=== PATIENT | female | born 1980 | race American Indian/Alaskan Native ===

== ENCOUNTER 2016-10-15 08:21 | Emergency (ER) | payer BC, OTHER ==
[2016-10-15 08:58] LABS: Basophils % (Auto) 0.6 % (0.0-1.8); Eosinophils % (Auto) 3.7 % (0.0-4.3); Hematocrit 37.5 % (30.3-42.9); Hemoglobin 12.3 gm/dl (10.1-14.3); Mean Corpuscular HGB Conc 33 % (30-34); Mean Corpuscular Hemoglobin 27 pg (28-32); Mean Corpuscular Volume 81 fl (79-97); Platelet Count 303 K/mm3 (140-440); Red Blood Count 4.62 M/mm3 (3.65-5.03); Red Cell Distribution Width 14.3 % (13.2-15.2); White Blood Count 6.8 K/mm3 (4.5-11.0)
[2016-10-15 09:10] LABS: Bilirubin,Urine NEG (Negative); Blood,Urine NEG (Negative); Ketones,Urine NEG (Negative); Leukocyte Esterase,Urine MOD (Negative); Mucus,Urine FEW /HPF; Nitrite,Urine NEG (Negative); Protein,Urine <15 mg/dL mg/dL (Negative); Urobilinogen,Urine < 2.0 mg/dL (<2.0)
[2016-10-15 09:14] LABS: Albumin 3.5 g/dL (3.9-5); Albumin/Globulin Ratio 0.8 %; Alkaline Phosphatase 48 units/L (35-129); Blood Urea Nitrogen 10 mg/dL (7-17); Calcium 8.7 mg/dL (8.4-10.2); Carbon Dioxide 23 mmol/L (22-30); Chloride 99.8 mmol/L (98-107); Glucose 117 mg/dL (65-100); Lipase 9 units/L (13-60); Sodium 137 mmol/L (137-145); Total Protein 7.7 g/dL (6.3-8.2)
[2016-10-15 10:05] LABS: Alanine Aminotransferase 13 units/L (7-56); Anion Gap 19 mmol/L; Potassium 4.7 mmol/L (3.6-5.0)
--- NOTE | 2016-10-15 11:23 | Emergency Department Report ---
HPI - General Chief Complaint: Abdominal Pain Time Seen by Provider: 10/15/16 11:18 - HPI HPI: This is a 36-year-old -[place] female presents to the emergency department with a complaint of lower abdominal cramping and some nausea and vomiting that has been going on since last night. She did not take anything for symptoms prior to presentation. She denies any past medical history. She denies any past surgical history. No recent travel or sick contacts at home. She denies any vaginal bleeding, vaginal discharge, dysuria, fever. 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 ED Past Medical Hx - Past Medical History Previous Medical History?: Yes Hx Hypertension: No Hx CVA: No Hx Heart Attack/AMI: No Hx Congestive Heart Failure: No Hx Diabetes: No Hx Deep Vein Thrombosis: No Hx Pulmonary Embolism: No Hx GERD: No Hx Liver Disease: No Hx Renal Disease: No Hx Sickle Cell Disease: No Hx Arthritis: No Hx Headaches / Migraines: No Hx Seizures: No Hx Kidney Stones: No Hx Psychiatric Treatment: No Hx Asthma: No Hx COPD: No Hx Tuberculosis: No Hx Dementia: No Hx HIV: No Additional medical history: fibroids, Right abd/flank pain - Surgical History Past Surgical History?: Yes Hx Coronary Stent: No Hx Open Heart Surgery: No Hx Pacemaker: No Hx Internal Defibrillator: No Hx Cholecystectomy: No Hx Appendectomy: No Hx Breast Surgery: No Additional Surgical History: D&C, Uterine fibroids removed - Social History Smoking Status: Never Smoker Substance Use Type: Non Opiate Pain, Other - Medications Home Medications: Home Medications Medication Instructions Recorded Confirmed Last Taken Type Vit-Fe Fumar-FA [ 1 tab PO QDAY #30 tablet 10/15/16 Unknown Rx Vitamin] ED Review of Systems ROS: Stated complaint: VOMITTING/ABD PAIN Other details as noted in HPI Comment: All other systems reviewed and negative Constitutional: denies: chills, fever Eyes: denies: eye pain, eye discharge, vision change ENT: denies: ear pain, throat pain Respiratory: denies: cough, shortness of breath, wheezing Cardiovascular: denies: chest pain, palpitations Gastrointestinal: abdominal pain, nausea, vomiting Genitourinary: denies: urgency, dysuria, discharge Musculoskeletal: denies: back pain, joint swelling, arthralgia Skin: denies: rash, lesions Neurological: denies: headache, weakness, paresthesias Physical Exam - Physical Exam Vital Signs: Vital Signs 10/15/16 08:24 Temperature 98.5 F Pulse Rate 70 Respiratory 18 Rate Blood Pressure 180/93 O2 Sat by Pulse 100 Oximetry Physical Exam: GENERAL: The patient is well-developed well-nourished. HEENT: Normocephalic. Atraumatic. Extraocular motions are intact. Patient has moist mucous membranes. Pupils equal reactive to light bilaterally. NECK: Supple. Trachea is midline. CHEST/LUNGS: Clear to auscultation. There is no respiratory distress noted. HEART/CARDIOVASCULAR: Regular. There is no tachycardia. There is no gallop rub or murmur. ABDOMEN: Abdomen is soft, nontender. Patient has normal bowel sounds. There is no abdominal distention. Morbidly obese habitus. SKIN: Skin is warm and dry. NEURO: The patient is awake, alert, and oriented. The patient is cooperative. The patient has no focal neurologic deficits. The patient has normal speech. MUSCULOSKELETAL: There is no tenderness or deformity. There is no limitation range of motion. There is no evidence of acute injury. ED Course Vital Signs 10/15/16 08:24 Temperature 98.5 F Pulse Rate 70 Respiratory 18 Rate Blood Pressure 180/93 O2 Sat by Pulse 100 Oximetry ED Medical Decision Making - Lab Data Result diagrams: 10/15/16 08:43 10/15/16 08:43 - Radiology Data Radiology results: report reviewed Transvaginal/ ultrasound shows a live intrauterine at about 8 weeks and 3 days. - Medical Decision Making 36-year-old female presents the emergency department with complaint of some abdominal cramping with nausea and vomiting last night. Patient had no idea that she was but was found to have a positive urine test here. The rest the labs are unremarkable do not show etiology of her symptoms. No urinary tract infection. Sent for a transvaginal/ ultrasound which came back showing live intrauterine at 8 weeks and 3 days. Patient started on vitamins and given multiple referrals for CORE INSPECTOR. She did have some elevated blood pressure but she does not appear to have preeclampsia. There is no sign of help syndrome. There is no thrombocytopenia, proteinuria , headache or elevation in her LFTs. For this reason she was not started on any medications other than the vitamins and was given multiple referrals for CORE INSPECTOR. - Differential Diagnosis , food poisoning, UTI, viral syndrome Critical Care Time: No Critical care attestation.: If time is entered above; I have spent that time in minutes in the direct care of this critically ill patient, excluding procedure time. ED Disposition Clinical Impression: Qualifiers: Weeks of gestation: 8 weeks Qualified Code(s): Z3A.08 - 8 weeks gestation of Nausea & vomiting Qualifiers: Vomiting type: unspecified Vomiting Intractability: non-intractable Qualified Code(s): R11.2 - Nausea with vomiting, unspecified Hypertension Qualifiers: Hypertension type: essential hypertension Qualified Code(s): I10 - Essential ( primary) hypertension Disposition: DC- TO HOME OR SELFCARE Is pt being admited?: No Condition: Stable Instructions: (ED), Hypertension (ED) Additional Instructions: Please follow-up with an CORE INSPECTOR in the next few days regarding her and your elevated blood pressure during . Try to stay away from foods that are high in salt and caffeinated products. Keep a blood pressure log. Return to the emergency department with any worsening of your symptoms or any acute distress. Prescriptions: Vit-Fe Fumar-FA [ Vitamin] 1 tab PO QDAY #30 tablet Referrals: [facility] [Provider Group] - 3-5 Days [facility] [Provider Group] - 3-5 Days [facility] [Provider Group] - 3-5 Days Forms: Work/School Release Form(ED) Time of Disposition: 12:48
[2016-10-15 12:14] VITALS: BP 153/89
--- NOTE | 2016-10-15 12:27 | Ultrasound Report ---
Transabdominal and transvaginal OB ultrasound. History: Pelvic pain. Findings: A single intrauterine is identified. The crown-rump length measures 1.9 cm which corresponds to a gestational age of 8 weeks and 3 days. The heart rate is 168 beats per minute. There is no evidence of subchorionic hemorrhage. The left ovary is normal. There is a 2.4 cm in diameter complex lesion in the right ovary. EDC is May 24, 2017. Impression: Viable IUP at 8 weeks 3 days gestation.
== END 2016-10-15 13:05 | disposition home or self-care (01) ==
LOC: ED 08:21
DX: O21.9 Vomiting of pregnancy, unspecified (principal); O26.891 Other specified pregnancy related conditions, first trimester; R11.0 Nausea; Z3A.08 8 weeks gestation of pregnancy; I10 Essential (primary) hypertension
CPT/HCPCS: 36415; 76801; 76817; 80053; 81001; 81025; 83690; 84702; 85025

== ENCOUNTER 2016-11-11 06:17 | Emergency (ER) | payer BC ==
[2016-11-11 07:00] VITALS: BP 185/95
[2016-11-11 07:28] LABS: Basophils % (Auto) 0.9 % (0.0-1.8); Eosinophils % (Auto) 3.2 % (0.0-4.3); Hemoglobin 12.3 gm/dl (10.1-14.3); Mean Corpuscular HGB Conc 33 % (30-34); Mean Corpuscular Hemoglobin 27 pg (28-32); Mean Corpuscular Volume 80 fl (79-97); Platelet Count 257 K/mm3 (140-440); Red Blood Count 4.61 M/mm3 (3.65-5.03); Red Cell Distribution Width 14.3 % (13.2-15.2); White Blood Count 6.8 K/mm3 (4.5-11.0)
[2016-11-11 07:48] LABS: Alanine Aminotransferase 13 units/L (7-56); Albumin 3.5 g/dL (3.9-5); Albumin/Globulin Ratio 0.9 %; Alkaline Phosphatase 46 units/L (35-129); Anion Gap 17 mmol/L; Blood Urea Nitrogen 6 mg/dL (7-17); Calcium 8.8 mg/dL (8.4-10.2); Carbon Dioxide 23 mmol/L (22-30); Glucose 108 mg/dL (65-100); Lipase 9 units/L (13-60); Potassium 4.1 mmol/L (3.6-5.0); Sodium 137 mmol/L (137-145); Total Protein 7.4 g/dL (6.3-8.2)
[2016-11-11 08:09] LABS: Bacteria,Urine 1+ /HPF (Negative); Bilirubin,Urine NEG (Negative); Blood,Urine NEG (Negative); Ketones,Urine NEG (Negative); Leukocyte Esterase,Urine TR (Negative); Mucus,Urine FEW /HPF; Nitrite,Urine NEG (Negative); Protein,Urine <15 mg/dL mg/dL (Negative); Urobilinogen,Urine < 2.0 mg/dL (<2.0)
== END 2016-11-11 07:11 | disposition left against medical advice (07) ==
LOC: ED 06:17
DX: O20.9 Hemorrhage in early pregnancy, unspecified (principal); Z3A.12 12 weeks gestation of pregnancy; Z53.21 Procedure and treatment not carried out due to patient leaving prior to being seen by health care provider
CPT/HCPCS: 36415; 80053; 81001; 83690; 84702; 85025; 86850; 86900; 86901

== ENCOUNTER 2017-04-12 10:20 | Outpatient (CLI) | payer BC, MEDICAID ==
[2017-04-12] MEDS ORDERED: LACTATED RINGERS 500 ML IV ONE (10:39)
[2017-04-12 11:25] VITALS: BP 113/61
[2017-04-12 11:48] LABS: Bilirubin,Urine NEG (Negative); Blood,Urine NEG (Negative); Color,Urine Yellow (Yellow); Mucus,Urine FEW /HPF; Nitrite,Urine NEG (Negative); Protein,Urine <15 mg/dL mg/dL (Negative)
[2017-04-12] MEDS ORDERED: LACTATED RINGERS 1,000 ML IV ONE (12:41)
--- NOTE | 2017-04-12 14:44 | Ultrasound Report ---
FINAL REPORT EXAM: US OB BPP WO NON-STRESS HISTORY: WELL BEING-BPP TECHNIQUE: Biophysical profile Limited OB ultrasound. PRIORS: None currently available. FINDINGS: Single fetus is identified. Presentation: Breech Placenta: Anterior. heart rate: 135 BPM LEONEL: 11.9 cm. Within normal limits. Breathin Gross Body Movements: 2 Tone: 2 Qualitative AFV: 2 IMPRESSION: Biophysical profile score 8/8.
--- NOTE | 2017-04-12 14:44 | Ultrasound Report ---
FINAL REPORT EXAM: US OB LIMITED HISTORY: NEED LEONEL TECHNIQUE: Biophysical profile Limited OB ultrasound. PRIORS: None currently available. FINDINGS: Single fetus is identified. Presentation: Breech Placenta: Anterior. heart rate: 135 BPM LEONEL: 11.9 cm. Within normal limits. Breathin Gross Body Movements: 2 Tone: 2 Qualitative AFV: 2 IMPRESSION: Biophysical profile score 8/8.
[2017-04-12] MEDS ORDERED: VISTARIL PO ONE (14:48)
== END 2017-04-12 15:07 | disposition home or self-care (01) ==
LOC: TRG 10:20
PROVIDERS: ATTEND Obstetrics & Gynecology
DX: O09.523 Supervision of elderly multigravida, third trimester (principal); O32.1XX0 Maternal care for breech presentation, not applicable or unspecified; Z3A.34 34 weeks gestation of pregnancy
CPT/HCPCS: 76815; 76819; 81001; J7120; Q0177

== ENCOUNTER 2017-05-01 04:55 | Outpatient (CLI) | payer BC, MEDICAID ==
[2017-05-01 05:16] VITALS: BP 132/83
== END 2017-05-01 07:10 | disposition home or self-care (01) ==
LOC: TRG 04:55
PROVIDERS: ATTEND Obstetrics & Gynecology
DX: O09.523 Supervision of elderly multigravida, third trimester (principal); O47.1 False labor at or after 37 completed weeks of gestation; Z3A.37 37 weeks gestation of pregnancy

== ENCOUNTER 2017-05-03 09:03 | Inpatient (IN) | payer BC, MEDICAID ==
[2017-05-03] MEDS ORDERED: LACTATED RINGERS 1,000 ML ONE (10:25)
[2017-05-03] MEDS ORDERED: ePHEDrine SULFATE IV PRN (10:33)
[2017-05-03] MEDS ORDERED: SUBLIMAZE IV PRN ×2 (10:33→10:47)
[2017-05-03] MEDS ORDERED: BRETHINE SUB-Q PRN (10:33)
[2017-05-03] MEDS ORDERED: POLYCILLIN/NS 2 GM/100 ML 2 GM/100 ML BAG IV ONE (10:33)
[2017-05-03] MEDS ORDERED: MINERAL OIL PO PRN (10:33)
[2017-05-03] MEDS ORDERED: XYLOCAINE 2% INFILTRATI ONE (10:33)
[2017-05-03] MEDS ORDERED: BRETHINE IVP PRN (10:33)
[2017-05-03] MEDS ORDERED: SUBLIMAZE ONE ×2 (10:49→11:47)
[2017-05-03] MEDS ORDERED: PITOCin/NS 20 UNIT/1000ML DRIP 20 UNITS/1,000 ML BAG IV SCH ×2 (11:00→13:00)
[2017-05-03] MEDS ORDERED: LACTATED RINGERS 1,000 ML IV SCH (11:00)
[2017-05-03] MEDS ORDERED: PITOCin/NS 30 UNIT/500ML 30 UNITS/500 ML BAG IV SCH (11:00)
[2017-05-03] MEDS ORDERED: BICITRA ONE (11:05)
[2017-05-03] MEDS ORDERED: REGLAN ONE (11:05)
[2017-05-03] MEDS ORDERED: PEPCID ONE (11:06)
[2017-05-03] MEDS ORDERED: ANCEF/STERILE WATER 2 GM/20 ML 2 GM/20 ML SYRINGE IV ONE (11:06)
[2017-05-03] MEDS ORDERED: ANCEF/STERILE WATER 2 GM/20 ML IV ONE (11:07)
[2017-05-03] MEDS ORDERED: NARCAN 2 MG/2 ML ONE (11:09)
[2017-05-03] MEDS ORDERED: DIPRIVAN 10 MG/ML IV ONE (11:15)
[2017-05-03] MEDS ORDERED: XYLOCAINE MPF 2% ONE (11:15)
[2017-05-03] MEDS ORDERED: QUELICIN ONE (11:15)
[2017-05-03] MEDS ORDERED: NACL 0.9% IR ONE (11:17)
[2017-05-03] MEDS ORDERED: WATER FOR IRRIG STERILE IR ONE (11:17)
--- NOTE | 2017-05-03 11:24 | History and Physical Report ---
History of Present Illness Date of examination: 05/03/17 Date of admission: 05/03/17 09:03 Chief complaint: Leaking fluid, contractions History of present illness: 37yo G 1 P 0 @ 37 weeks 3 days by US here with c/o leaking clear fluid since 08: 00 and having regular contractions. She reports +FMs but denies VB. Her course is complicated by chronic HTN, AMA and morbid obesity; co- managed with [facility]. She is on Labetalol 200mg PO BID. She has a h/o genital herpes and is on suppressive therapy. She denies any sores or recent outbreak. She is GBS neg. 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: other (uterine fibroids) Family/Genetic History: cancer (breast) Social history: - Obstetrical History Expected Date of Delivery: 05/24/17 Actual Gestation: 37 Week(s) 0 Day(s) : 1 Para: 0 Hx # Term Pregnancies: 0 Number of Pregnancies: 0 Spontaneous Abortions: 0 Induced : 0 Number of Living Children: 0 Medications and Allergies Allergies Allergy/AdvReac Type Severity Reaction Status Date / Time No Known Allergies Allergy Verified 04/12/17 10:28 Home Medications Medication Instructions Recorded Confirmed Last Taken Type Vit-Fe Fumar-FA [ 1 tab PO QDAY #30 tablet 10/15/16 Unknown Rx Vitamin] Ferrous Sulfate [Feosol 325 MG tab] 325 mg PO BID #60 tablet 05/03/17 Unknown Rx HYDROcodone/APAP 5-325 [[place] 1 each PO Q6HR PRN #30 tablet 05/03/17 Unknown Rx 5/325] Ibuprofen [Motrin] 800 mg PO Q8HR PRN #30 tablet 05/03/17 Unknown Rx Vit-Fe Fumar-FA [ 1 tab PO QDAY #30 tablet 05/03/17 Unknown Rx Vitamin] Active Meds: Active Medications Ephedrine Sulfate (Ephedrine Sulfate) 10 mg IV Q2M PRN PRN Reason: Hypotension Fentanyl (Sublimaze) 100 mcg IV Q2H PRN PRN Reason: SEVERE PAIN Ampicillin Sodium (Polycillin/Ns 2 Gm/100 Ml) 2 gm in 100 mls @ 100 mls/hr IV ONCE ONE PRN Reason: Protocol Stop: 05/03/17 11:32 Lactated Ringer's (Lactated Ringers) 1,000 mls @ 125 mls/hr IV DIRECT MALLORY Oxytocin/Sodium Chloride (Pitocin/Ns 20 Unit/1000ml Drip) 20 units in 1,000 mls @ 125 mls/hr IV DIRECT MALLORY Oxytocin/Sodium Chloride (Pitocin/Ns 30 Unit/500ml) 30 units in 500 mls @ 0 mls /hr IV TITR MALLORY; As Directed PRN Reason: Protocol Mineral Oil (Mineral Oil) 30 ml PO QHS PRN PRN Reason: Constipation Terbutaline Sulfate (Brethine) 0.25 mg SUB-Q ONCE PRN PRN Reason: Hyperstimulation/Hypertonicity Terbutaline Sulfate (Brethine) 0.25 mg IVP ONCE PRN PRN Reason: Hyperstimulation/Hypertonicity Review of Systems All systems: negative - Vital Signs Vital signs: Vital Signs Pulse Pulse Ox 97 H 99 05/03/17 09:47 05/03/17 09:47 Temp Pulse Resp BP Pulse Ox 97.3 F L 89 18 143/86 94 05/03/17 09:55 05/03/17 11:02 05/03/17 09:55 05/03/17 09:56 05/03/17 11:02 - Physical Exam Cardiovascular: Regular rate, Normal S1, Normal S2, No murmurs Lungs: Positive: Clear to auscultation, Normal air movement Abdomen: Positive: normal appearance, soft Genitourinary (Female): Positive: normal external genitalia, normal perenium Vulva: both: normal Vagina: Positive: normal moisture Uterus: Positive: normal size, normal contour Anus/Rectum: Positive: normal perianal skin Extremities: Positive: normal Deep Tendon Reflex Grade: Dull/Diminished +1 - Obstetrical FHR: category 3 FHR comments: baseline initially in the 50's then 90's with IV hydration, oxygen administration and position changes Uterine Contraction Monitor Mode: External Cervical Dilatation: 5 Cervical Effacement Percentage: 100 station: -2 Uterine Contraction Frequency (min): 3 Uterine Contraction Pattern: Regular Results Result Diagrams: 05/03/17 09:55 All other labs normal. Assessment and Plan - Patient Problems (1) SROM (spontaneous rupture of membranes) Current Visit: Yes Status: Acute Plan to address problem: Admit to L&D with routine labor orders IUPC/FSE insertion due to difficulties with external tracing (2) Active labor at term Current Visit: Yes Status: Acute (3) 37 weeks gestation of Current Visit: Yes Status: Acute (4) Chronic hypertension affecting Current Visit: Yes Status: Acute Plan to address problem: Hourly BP checks (5) Morbid obesity with BMI of 50.0-59.9, adult Current Visit: Yes Status: Acute (6) bradycardia during labor Current Visit: Yes Status: Acute Plan to address problem: Extended Bradycardia Dr. Toro notified. STAT C/S called
[2017-05-03] MEDS ORDERED: ASTRAMORPH PF 10MG/10ML ONE (11:31)
[2017-05-03] MEDS ORDERED: DILAUDID ONE (11:32)
[2017-05-03] MEDS ORDERED: VERSED ONE (11:34)
[2017-05-03] MEDS ORDERED: NEO SYNEPHRINE/NS Syringe(OR USE) IV ONE (11:45)
[2017-05-03] MEDS ORDERED: ZOFRAN ONE (11:46)
--- NOTE | 2017-05-03 12:09 | Anesthesia Consultation ---
Anesthesia Consult and Med Hx Date of service: 05/03/17 - Airway Anesthetic Teeth Evaluation: Good ROM Head & Neck: Adequate Mental/Hyoid Distance: Adequate Mallampati Class: Class II Intubation Access Assessment: Probably Good - Pulmonary Exam CTA: Yes - Cardiac Exam Cardiac Exam: RRR - Pre-Operative Health Status ASA Pre-Surgery Classification: ASA2 Proposed Anesthetic Plan: General - Pulmonary Hx Asthma: No COPD: No Hx Pneumonia: No - Cardiovascular System Hx Hypertension: Yes Hx Heart Attack/AMI: No Hx Pacemaker: No Hx Internal Defibrillator: No - Central Nervous System Hx Seizures: No Hx Psychiatric Problems: No - Endocrine Hx Renal Disease: No Hx End Stage Renal Disease: No Hx Liver Disease: No Hx Hypothyroidism: No Hx Hyperthyroidism: No - Hematic Hx Anemia: No Hx Sickle Cell Disease: No - Other Systems Hx Alcohol Use: No
--- NOTE | 2017-05-03 12:09 | Anesthesia Day of Surgery ---
Anesthesia Day of Surgery - Day of Surgery Patient Examined: Yes Patient H&P Reviewed: Yes Patient is NPO: Yes
--- NOTE | 2017-05-03 12:17 | Operative Report ---
Operative Report Operative Report: Date of procedure: 05/03/2017 Pre-operative diagnosis: 1. Intrauterine at 37-2/7 weeks in labor 2. Non-reassuring surveillance 3. AMA 4. Chronic hypertension 5. Morbid obesity Post-operative diagnosis: Same Procedure name(s): Stat primary low transverse section Surgeon: Johnny Toro MD Assembler Garment Form: None Anesthesia: Gen. endotracheal intubation by Dr. Jorge EBL: 800 mL Findings: A 2912 g female infant Apgars 8 at 1 minute 9 at 5 minutes. Clear amniotic fluid. Normal uterus. Normal tubes and ovaries bilaterally. Procedure: After the patient was prepped and draped in usual sterile fashion, and after general anesthesia was obtained, the skin knife was used to make a transverse skin incision. The incision was excised down to layer of the fascia , which was nicked in the midline and extended laterally using the Bovie cautery. The rectus muscles were dissected off the rectus fascia both superiorly and inferiorly. The rectus bellies in the midline, and the peritoneum was entered under direct visualization. The peritoneal incision was extended superiorly and inferiorly. A bladder flap was created and the bladder blade was then placed. The uterus was scored in a curvilinear linear fashion, entered in the midline revealing clear amniotic fluid. The 's head was delivered onto the surgical field, and the oropharynx and nasopharynx were bulb suctioned. The rest of the 's body was delivered, cord was doubly clamped and cut and the was handed to the waiting respiratory team. Cord gas and cord blood was then obtained. The placenta was manually removed from the uterus, and the uterus removed from its normal anatomical position. After gentle uterine lavage, the incision was inspected and found to be without extensions. It was then closed in 2 layers using 0 Vicryl suture in a running interlocking fashion, the second layer imbricating the first. After good hemostasis was achieved, copious amounts or irrigation was performed, and the gutters were suctioned free of blood and blood clots. Tisseel sealant was sprayed across the uterine incision. The uterus was then returned to its normal anatomical position, and after excellent hemostasis assured, the peritoneum was re-approximated using 3-0 Vicryl suture in a running interlocking fashion, and then the rectus muscles were re-approximated using 3- 0 Vicryl suture in a [id number] configuration. The fascia was then re- approximated using 0 Vicryl suture in running interlocking fashion. The subcutaneous layer was made hemostatic using Bovie cautery, the Tisseel sealant was sprayed across the fascial incision and the skin edges re-approximated using 4-0 Vicryl suture in a subcuticular fashion. Patient tolerated the procedure well was transported to recovery in stable condition.
[2017-05-03] MEDS ORDERED: BENADRYL IV PRN (12:30)
[2017-05-03] MEDS ORDERED: DILAUDID IV PRN (12:30)
[2017-05-03 12:38] LABS: Hematocrit 32.3 % (30.3-42.9); Hemoglobin 10.8 gm/dl (10.1-14.3); Mean Corpuscular HGB Conc 34 % (30-34); Mean Corpuscular Hemoglobin 27 pg (28-32); Mean Corpuscular Volume 81 fl (79-97); Platelet Count 371 K/mm3 (140-440); Red Blood Count 3.97 M/mm3 (3.65-5.03); Red Cell Distribution Width 13.6 % (13.2-15.2)
[2017-05-03] MEDS ORDERED: NARCAN 0.4 MG/1 ML IV PRN ×2 (13:00)
[2017-05-03] MEDS ORDERED: SODIUM CHLORIDE FLUSH SYRINGE 10 ML IV PRN (13:00)
[2017-05-03] MEDS ORDERED: LANSINOH TP PRN (13:00)
[2017-05-03] MEDS ORDERED: TYLENOL PO PRN (13:00)
[2017-05-03] MEDS ORDERED: ANCEF/NS 1 GM/50 ML 1 GM/50 ML BAG IV SCH (13:00)
[2017-05-03] MEDS ORDERED: MYLICON PO PRN (13:00)
[2017-05-03] MEDS ORDERED: TUCKS PAD TP PRN (13:00)
[2017-05-03] MEDS ORDERED: NACL 0.9% 1000 ML 1,000 ML IV SCH (13:00)
[2017-05-03] MEDS ORDERED: ZOFRAN IV PRN (13:00)
[2017-05-03] MEDS ORDERED: NORCO 5/325 PO PRN (13:00)
[2017-05-03] MEDS ORDERED: D5LR 1,000 ML IV SCH (13:00)
[2017-05-03] MEDS ORDERED: MORPHINE PCA 30MG/30ML IV SCH (13:00)
[2017-05-03] MEDS: TORADOL IV PRN (14:45)
[2017-05-03] MEDS ORDERED: MAGNESIUM SULFATE 4GM/100ML 4 GM/100 ML BAG IV ONE (15:40)
[2017-05-03] MEDS ORDERED: APRESOLINE IV PRN (15:41)
[2017-05-03] MEDS ORDERED: MAGNESIUM SULFATE 40GM/1000ML 40 GM/1,000 ML BAG IV SCH (16:00)
--- NOTE | 2017-05-03 16:56 | Post Anesthesia Evaluation ---
- Post Anesthesia Evaluation Patient Participated: Yes Airway Patent: Yes Stable Respiratory Function: Yes Nausea/Vomiting: No Temp > 96.8F: Yes Pain Manageable: Yes Adequeate Hydration: Yes Anesthesia Complications: No Block Receding Appropriately: Yes Patient on Ventilator: No
[2017-05-03 17:22] LABS: Uric Acid 5.8 mg/dL (3.5-7.6)
[2017-05-03 18:48] LABS: Bilirubin,Urine NEG (Negative); Blood,Urine MOD (Negative); Color,Urine Yellow (Yellow); Mucus,Urine 1+ /HPF; Nitrite,Urine NEG (Negative); Protein,Urine <15 mg/dL mg/dL (Negative); Urobilinogen,Urine < 2.0 mg/dL (<2.0)
[2017-05-03] MEDS: ceFAZolin 1 GM in NACL 0.9% 20 ML IV SCH (20:52)
[2017-05-03] MEDS ORDERED: MILK OF MAGNESIA PO PRN (22:00)
[2017-05-04] MEDS: TORADOL IV PRN (00:29)
[2017-05-04 00:58] LABS: Hematocrit 24.4 % (30.3-42.9); Hemoglobin 8.1 gm/dl (10.1-14.3)
[2017-05-04] MEDS: LACTATED RINGERS 1,000 ML IV SCH ×2 (01:00→13:40)
[2017-05-04] MEDS: PERCOCET 5/325 PO PRN ×3 (04:19→20:36)
[2017-05-04] MEDS: ceFAZolin 1 GM in NACL 0.9% 20 ML IV SCH (05:01)
[2017-05-04] MEDS ORDERED: BOOSTRIX IM ONE (06:00)
[2017-05-04] MEDS: MOTRIN PO PRN ×2 (07:56→17:51)
--- NOTE | 2017-05-04 09:10 | Progress Note ---
Assessment and Plan - Patient Problems (1) 37 weeks gestation of Current Visit: Yes Status: Acute (2) Pre-eclampsia superimposed on chronic hypertension Current Visit: Yes Status: Acute Plan to address problem: Continue magnesium, to be discontinued at 5 pm today. Restart labetolol. Monitor BP, DTRs, urine output. (3) delivery delivered Current Visit: Yes Status: Acute Plan to address problem: Routine postop care. OOB to chair and ambulate. Pain meds as needed. (4) Morbid obesity with BMI of 50.0-59.9, adult Current Visit: Yes Status: Acute Subjective - Subjective Date of service: 05/04/17 Principal diagnosis: S/P C/section, CHTN, morbid obesity Interval history: Patient is S/P C/section for NTFHT and pre-eclampsia during labor. She is POD# 1. Her BP has been elevated. Magnesium is running at 2gm/hr. She denies any complaint. She has passed flatus and is tolerating regular diet well. Objective - Vital Signs Latest vital signs: Vital Signs Temp Pulse Resp BP BP Pulse Ox 05/04/17 07:56 20 05/04/17 06:46 98.2 F 90 20 163/88 100 05/04/17 04:39 98.1 F 20 153/90 05/04/17 04:19 20 05/04/17 04:10 20 05/04/17 03:50 18 05/04/17 02:45 98.3 F 97 H 20 148/83 98 05/04/17 02:01 20 05/04/17 00:58 99.2 F 95 H 20 164/86 100 05/04/17 00:29 20 05/03/17 23:06 99.2 F 99 H 20 148/87 97 05/03/17 22:12 18 05/03/17 21:13 98.5 F 111 H 20 136/76 97 05/03/17 19:30 18 05/03/17 18:18 20 05/03/17 18:12 97.8 F 110 H 18 143/78 97 05/03/17 16:54 105 H 20 149/95 100 05/03/17 16:49 109 H 16 177/104 100 05/03/17 16:44 108 H 20 163/102 98 05/03/17 16:39 106 H 16 182/106 97 02/18/18 16:33 4 L 20 168/96 100 05/03/17 16:00 16 05/03/17 15:35 171/104 05/03/17 15:00 16 05/03/17 14:10 99.3 F 84 16 150/109 05/03/17 11:02 89 94 05/03/17 09:56 105 H 143/86 05/03/17 09:55 97.3 F L 90 18 143/86 98 05/03/17 09:53 84 96 05/03/17 09:50 82 134/60 05/03/17 09:47 97 H 99 Intake and Output 05/03/17 05/04/17 05/04/17 23:59 07:59 15:59 Intake Total 360 Output Total 975 1999 Balance -975 -1640 Intake: Oral 360 Output: Urine 975 1999 Indwelling Catheter 975 1999 Other: Total, Intake Amount 120 Total, Output Amount 375 600 - Exam Cardiovascular: Present: Normal S1, Normal S2 Lungs: Present: Clear to auscultation Vulva: both: normal Deep Tendon Reflex Grade: Normal +2 - Labs Labs: Abnormal lab results 05/03/17 05/03/17 05/03/17 Range/Units 09:55 11:41 11:45 Hgb (10.1-14.3) gm/dl Hct (30.3-42.9) % MCH 27 L (28-32) pg POC ABG pH 7.196 L 7.229 L (7.35-7.45) POC ABG pCO2 63.8 H 57.2 H (35-45) POC ABG pO2 23 L 33 L (80-105) Magnesium (1.7-2.3) mg/dL AST (5-40) units/L Urine WBC (Auto) (0.0-6.0) /HPF 05/03/17 05/03/17 05/04/17 Range/Units 15:43 18:30 00:29 Hgb 8.1 L (10.1-14.3) gm/dl Hct 24.4 L D (30.3-42.9) % MCH (28-32) pg POC ABG pH (7.35-7.45) POC ABG pCO2 (35-45) POC ABG pO2 (80-105) Magnesium (1.7-2.3) mg/dL AST 52 H (5-40) units/L Urine WBC (Auto) 17.0 H (0.0-6.0) /HPF 05/04/17 05/04/17 Range/Units 00:29 05:03 Hgb (10.1-14.3) gm/dl Hct (30.3-42.9) % MCH (28-32) pg POC ABG pH (7.35-7.45) POC ABG pCO2 (35-45) POC ABG pO2 (80-105) Magnesium 3.20 H 4.10 H (1.7-2.3) mg/dL AST (5-40) units/L Urine WBC (Auto) (0.0-6.0) /HPF
[2017-05-04] MEDS: NORMODYNE PO SCH ×2 (10:23→23:26)
[2017-05-04] MEDS: PRENATAL VITAMIN PO SCH (10:25)
[2017-05-04] MEDS: FEOSOL PO SCH (10:25)
[2017-05-04] MEDS ORDERED: M-M-R II VACCINE SUB-Q ONE (11:00)
[2017-05-04] MEDS ORDERED: MAGNESIUM SULFATE IV SCH (14:30)
[2017-05-04] MEDS ORDERED: NACL 0.9% IV SCH (14:30)
[2017-05-05] MEDS: PERCOCET 5/325 PO PRN ×3 (02:29→22:23)
[2017-05-05] MEDS: NORMODYNE PO SCH ×2 (07:59→22:19)
[2017-05-05] MEDS: MOTRIN PO PRN ×3 (07:59→23:59)
--- NOTE | 2017-05-05 09:59 | Progress Note ---
Assessment and Plan A: POD#2 s/p C/section Morbid obesity CHTN: labetalol Doing well: Ambulating, voiding and eating Anemia: Asymptomatic P: Continue routine PP/PO care Discharge home in am F/U 1 weeks for incision check Subjective - Subjective Date of service: 05/05/17 Principal diagnosis: S/P C/section, CHTN, morbid obesity Patient reports: appetite normal, voiding normally, pain well controlled, flatus , ambulating normally : doing well Objective - Vital Signs Latest vital signs: Vital Signs Temp Pulse Resp BP BP Pulse Ox 05/05/17 08:00 98.4 F 88 18 149/84 100 05/05/17 07:59 20 05/05/17 00:00 98.8 F 98 H 18 148/78 05/04/17 23:26 98 H 148/78 05/04/17 20:36 18 05/04/17 16:50 97.7 F 91 H 18 133/73 98 05/04/17 12:23 16 05/04/17 10:23 107 H 131/75 Intake and Output 05/04/17 05/05/17 05/05/17 23:59 07:59 15:59 Intake Total 900 Output Total 2200 1750 Balance -2200 -850 Intake: Oral 780 Intake, Free Water 120 Output: Urine 2200 1750 Indwelling Catheter 2200 Void 1750 Other: Total, Intake Amount 100 Total, Output Amount 600 450 # Voids Indwelling Catheter 1 Void 1 - Exam Cardiovascular: Present: Regular rate, Normal S1, Normal S2 Lungs: Present: Clear to auscultation, Normal air movement Abdomen: Present: normal appearance, soft, normal bowel sounds, other (Obese) Vulva: both: normal Uterus: Present: normal, firm, fundal height below umbilicus (U-1) Extremities: Present: normal. Absent: tenderness Deep Tendon Reflex Grade: Normal +2 Incision: Present: dressed - Labs Labs: Abnormal lab results 05/04/17 05/04/17 Range/Units 13:09 19:22 Magnesium 4.70 H 4.00 H (1.7-2.3) mg/dL
--- NOTE | 2017-05-05 10:02 | Discharge Summary ---
Providers - Providers Date of Admission: 05/03/17 09:03 Date of discharge: 05/06/17 Attending physician: MARIEL QUINTEROS MD Primary care physician: MARIEL QUINTEROS MD Hospitalization Reason for admission: active labor Delivery: Procedure details: See operative note Incision: dressed Other procedures: none complications: none Discharge diagnosis: delivery (37 weeks) [place] baby: female Condition at discharge: Good Disposition: DC-01 TO HOME OR SELFCARE Plan - Discharge Medications Prescriptions: Ferrous Sulfate [Feosol 325 MG tab] 325 mg PO BID #60 tablet HYDROcodone/APAP 5-325 [[place] 5/325] 1 each PO Q6HR PRN #30 tablet PRN Reason: Pain Ibuprofen [Motrin] 800 mg PO Q8HR PRN #30 tablet PRN Reason: Moder Pain Unrelieved By [place] Vit-Fe Fumar-FA [ Vitamin] 1 tab PO QDAY #30 tablet - Provider Discharge Summary Activity: no sex for 6 weeks, no heavy lifting 4 weeks, no strenuous exercise Diet: routine Instructions: routine Additional instructions: [] Smoking cessation referral if applicable(refer to patient education folder for contact #) [] Refer to [facility] Booklet Call your doctor immediately for: * Fever > 100.5 * Heavy vaginal bleeding ( >1 pad per hour) * Severe persistent headache * Shortness of breath * Reddened, hot, painful area to leg or breast * Drainage or odor from incision. * Keep incision clean and dry at all times and follow doctor's instructions regarding bathing/showering - Follow up plan Follow up: MARIEL QUINTEROS MD [Primary Care Provider] - 7 Days
[2017-05-06] MEDS: MOTRIN PO PRN ×2 (06:40→11:20)
[2017-05-06 09:56] VITALS: BP 141/93
[2017-05-06] MEDS: PERCOCET 5/325 PO PRN (11:20)
[2017-05-06] MEDS: PRENATAL VITAMIN PO SCH (11:20)
[2017-05-06] MEDS: FEOSOL PO SCH (11:20)
[2017-05-06] MEDS: NORMODYNE PO SCH (11:40)
== END 2017-05-06 11:50 | disposition home or self-care (01) | DRG 765 ==
LOC: LD 09:03 → OB 14:05
PROVIDERS: ADMIT Obstetrics & Gynecology; ATTEND Obstetrics & Gynecology
PROC: 10D00Z1 Extraction of Products of Conception, Low, Open Approach (ICD-10-PCS; principal; 2017-05-03)
PROC: 3E0234Z Introduction of Serum, Toxoid and Vaccine into Muscle, Percutaneous Approach (ICD-10-PCS; 2017-05-04)
DX: O60.13X0 Preterm labor second trimester with preterm delivery third trimester, not applicable or unspecified (principal); Z68.43 Body mass index [BMI] 50.0-59.9, adult; O98.32 Other infections with a predominantly sexual mode of transmission complicating childbirth; O99.214 Obesity complicating childbirth; O76 Abnormality in fetal heart rate and rhythm complicating labor and delivery; O99.02 Anemia complicating childbirth; D64.9 Anemia, unspecified; O11.4 Pre-existing hypertension with pre-eclampsia, complicating childbirth; E66.01 Morbid (severe) obesity due to excess calories; O75.0 Maternal distress during labor and delivery; Z3A.37 37 weeks gestation of pregnancy; Z37.0 Single live birth; Z23 Encounter for immunization; A60.00 Herpesviral infection of urogenital system, unspecified; Z79.899 Other long term (current) drug therapy
CPT/HCPCS: 36415; 81001; 82803; 83735; 84450; 84460; 84550; 85014; 85018; 85027; 86592; 86850; 86900; 86901; 88307; 90471; 99211; C9250; G0463; J0330; J0690; J1170; J1885; J2250; J2270; J2274; J2310; J2370; J2405; J2590; J2704; J2765; J3010; J3475; J7030; J7120; J7121

== ENCOUNTER 2020-09-29 10:30 | Emergency (ER) | payer BC, MEDICAID ==
[2020-09-29] MEDS ORDERED: TETRACAINE 0.5% OPHTH SOLN 4ML OU ONE (12:07)
[2020-09-29] MEDS ORDERED: FLUORESCEIN 1 MG STRIP OP ONE (12:07)
--- NOTE | 2020-09-29 12:16 | Emergency Department Report ---
ED Eye Problem HPI - General Chief complaint: Eye Problems Stated complaint: LEFT EYE PAIN / SENSITIVITY TO LIGHT Time Seen by Provider: 09/29/20 11:39 Source: patient Mode of arrival: Ambulatory Limitations: No Limitations - History of Present Illness Initial comments: Patient is a 40-year-old female presents emergency room complaints of left eye irritation that began yesterday. She denies getting anything into the eye, but states she feels like she has a foreign body sensation. She states that she is sensitive to light. States that she has had frequent watering. Patient states that she does wear contact lenses but took them out approximately 5 days ago. She states that she has some mild blurriness but is able to see. No past medical history. No allergies medications. - Related Data Previous Rx's Medication Instructions Recorded Last Taken Type Vit-Fe Fumar-FA [ 1 tab PO QDAY #30 tablet 10/15/16 Unknown Rx Vitamin] Ferrous Sulfate [Feosol 325 MG tab] 325 mg PO BID #60 tablet 05/03/17 Unknown Rx HYDROcodone/APAP 5-325 [[place] 1 each PO Q6HR PRN #30 tablet 05/03/17 Unknown Rx 5/325] Ibuprofen [Motrin] 800 mg PO Q8HR PRN #30 tablet 05/03/17 Unknown Rx Vit-Fe Fumar-FA [ 1 tab PO QDAY #30 tablet 05/03/17 Unknown Rx Vitamin] Ofloxacin 0.3% [Ocuflox 0.3% opth] 1 - 2 drops OS DAILY 7 Days #1 09/29/20 Unknown Rx bottle Allergies Allergy/AdvReac Type Severity Reaction Status Date / Time No Known Allergies Allergy Verified 04/12/17 10:28 ED Review of Systems ROS: Stated complaint: LEFT EYE PAIN / SENSITIVITY TO LIGHT Other details as noted in HPI Comment: All other systems reviewed and negative ED Past Medical Hx - Past Medical History Previous Medical History?: Yes Hx Hypertension: Yes Hx CVA: No Hx Heart Attack/AMI: No Hx Congestive Heart Failure: No Hx Diabetes: No Hx Deep Vein Thrombosis: No Hx Pulmonary Embolism: No Hx GERD: No Hx Liver Disease: No Hx Renal Disease: No Hx Sickle Cell Disease: No Hx Arthritis: No Hx Headaches / Migraines: No Hx Seizures: No Hx Kidney Stones: No Hx Psychiatric Treatment: No Hx Asthma: No Hx COPD: No Hx Tuberculosis: No Hx Dementia: No Hx HIV: No Additional medical history: fibroids, Right abd/flank pain - Surgical History Past Surgical History?: Yes Hx Coronary Stent: No Hx Open Heart Surgery: No Hx Pacemaker: No Hx Internal Defibrillator: No Hx Cholecystectomy: No Hx Appendectomy: No Hx Breast Surgery: No Additional Surgical History: D&C, Uterine fibroids removed - Social History Smoking Status: Never Smoker Substance Use Type: None - Medications Home Medications: Home Medications Medication Instructions Recorded Confirmed Last Taken Type Vit-Fe Fumar-FA [ 1 tab PO QDAY #30 tablet 10/15/16 05/04/17 Unknown Rx Vitamin] Ferrous Sulfate [Feosol 325 MG tab] 325 mg PO BID #60 tablet 05/03/17 Unknown Rx HYDROcodone/APAP 5-325 [[place] 1 each PO Q6HR PRN #30 tablet 05/03/17 Unknown Rx 5/325] Ibuprofen [Motrin] 800 mg PO Q8HR PRN #30 tablet 05/03/17 Unknown Rx Vit-Fe Fumar-FA [ 1 tab PO QDAY #30 tablet 05/03/17 Unknown Rx Vitamin] Ofloxacin 0.3% [Ocuflox 0.3% opth] 1 - 2 drops OS DAILY 7 Days #1 09/29/20 Unknown Rx bottle ED Physical Exam - General Limitations: No Limitations General appearance: alert, in no apparent distress - Head Head exam: Present: atraumatic, normocephalic - Eye Eye exam: Present: PERRL, EOMI, conjunctival injection (left ), other (fluoroscein stain with mascorro lamp examination left eye: there are two small areas of uptake present to the left iris, no foreign bodies idenfitied). Absent: periorbital swelling, periorbital tenderness - ENT ENT exam: Present: mucous membranes moist - Neurological Exam Neurological exam: Present: alert, oriented X3 - Psychiatric Psychiatric exam: Present: normal affect, normal mood - Skin Skin exam: Present: warm, dry, intact ED Course Vital Signs 09/29/20 09/29/20 09/29/20 10:57 12:34 13:28 Temperature 98.4 F Pulse Rate 89 81 81 Respiratory 20 19 19 Rate Blood Pressure 182/92 Blood Pressure 132/87 134/88 [Left] O2 Sat by Pulse 98 98 99 Oximetry ED Medical Decision Making - Lab Data Vital Signs 09/29/20 09/29/20 09/29/20 10:57 12:34 13:28 Temperature 98.4 F Pulse Rate 89 81 81 Respiratory 20 19 19 Rate Blood Pressure 182/92 Blood Pressure 132/87 134/88 [Left] O2 Sat by Pulse 98 98 99 Oximetry - Medical Decision Making Patient is a 40-year-old female presents emergency room complaints of left eye irritation that began yesterday. She denies getting anything into the eye, but states she feels like she has a foreign body sensation. She states that she is sensitive to light. States that she has had frequent watering. Patient states that she does wear contact lenses but took them out approximately 5 days ago. She states that she has some mild blurriness but is able to see. No past medical history. No allergies medications. vss. on exam: left conjunctival injection, fluoroscein stain with mascorro lamp examination left eye: there are two small areas of uptake present to the left iris, no foreign bodies identified, PERRLA, EOMI. examination appears consistent with conjunctivitis and small corneal abrasions. pt given prescription for medication, given that she typically wears contact lens, given prescription for ofloxacin, advised to not use contact lens. advised to Please use medication as prescribed. 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 Return to emergency room for new or worse symptoms. Critical care attestation.: If time is entered above; I have spent that time in minutes in the direct care of this critically ill patient, excluding procedure time. ED Disposition Clinical Impression: Corneal abrasion Qualifiers: Encounter type: initial encounter Laterality: left Qualified Code(s): S05.02XA - Injury of conjunctiva and corneal abrasion without foreign body, left eye, initial encounter Conjunctivitis Qualifiers: Conjunctivitis type: acute Acute conjunctivitis type: unspecified Laterality: left Qualified Code(s): H10.32 - Unspecified acute conjunctivitis, left eye Disposition: DC-01 TO HOME OR SELFCARE Is pt being admited?: No Does the pt Need Aspirin: No Condition: Stable Instructions: Corneal Abrasion Additional Instructions: Please use medication as prescribed. 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 Return to emergency room for new or worse symptoms. Prescriptions: Ofloxacin 0.3% [Ocuflox 0.3% opt] 1 - 2 drops OS DAILY 7 Days #1 bottle Referrals: PRIMARY CARE,MD [Primary Care Provider] - 2-3 Days [facility] [Provider Group] - 2-3 Days ALICIA HELM MD [Staff Physician] - 2-3 Days Forms: Work/School Release Form(ED) Time of Disposition: 12:54 Print Language: TUNISIAN
[2020-09-29 13:28] VITALS: BP 134/88
== END 2020-09-29 13:28 | disposition home or self-care (01) ==
LOC: ED 10:30
DX: S05.02XA Injury of conjunctiva and corneal abrasion without foreign body, left eye, initial encounter (principal); H10.9 Unspecified conjunctivitis; I10 Essential (primary) hypertension; Z98.890 Other specified postprocedural states; Z79.1 Long term (current) use of non-steroidal anti-inflammatories (NSAID); Z79.899 Other long term (current) drug therapy; X58.XXXA Exposure to other specified factors, initial encounter; Y93.89 Activity, other specified; Y92.89 Other specified places as the place of occurrence of the external cause; Y99.8 Other external cause status

== ENCOUNTER 2021-02-01 22:15 | Emergency (ER) | payer SELFPAY ==
[2021-02-01] MEDS ORDERED: KETOROLAC 60 MG/2 ML INJ IM ONE (23:23)
[2021-02-01] MEDS ORDERED: predniSONE 20 MG TAB PO ONE (23:23)
[2021-02-01] MEDS ORDERED: diazePAM 5 MG TAB PO ONE (23:23)
--- NOTE | 2021-02-02 00:02 | Emergency Department Report ---
ED Back Pain/Injury HPI - General Chief Complaint: Back Pain/Injury Stated Complaint: BACK PAIN AND SPAMS Source: patient Limitations: No Limitations - History of Present Illness Initial Comments: Patient is a 40-year-old -[place] female with a history of hypertension and morbid obesity who presents to the ED with complaint of acute onset persistent low back pain after heavy lifting at work 2 days ago. The patient states that the pain has worsened in the last 12 hours with any movement, stating that she was unable to get out of bed because of worsening pain in her low back. Patient states that she did not take any medications prior to arrival in the ED. Patient denies fall, hematuria, traumatic injury, numbness and tingling or weakness of lower extremities bilaterally, abdominal pain, nausea, vomiting, dizziness, syncope, neck pain, headache, chest pain or shortness of breath. MD Complaint: back pain (low back pain), back injury (muscle spasm due to heavy lifting) -: Sudden, days(s) (2) Similar Symptoms Previously: No Place: work Radiation: none Severity: severe Severity scale (0 -10): 7 Quality: sharp, aching Consistency: constant Improves With: none Worsens With: movement, walking Context: while lifting, turning/twisting Associated Symptoms: denies other symptoms. denies: confusion, weakness, chest pain, difficulty walking, cough, difficulty urinating, diaphoresis, incontinence, fever/chills, constipation, headaches, loss of appetite, malaise, nausea/vomiting, rash, shortness of breath, syncope - Related Data Previous Rx's Medication Instructions Recorded Last Taken Type Vit-Fe Fumar-FA [ 1 tab PO QDAY #30 tablet 10/15/16 Unknown Rx Vitamin] Ferrous Sulfate [Feosol 325 MG tab] 325 mg PO BID #60 tablet 05/03/17 Unknown Rx HYDROcodone/APAP 5-325 [[place] 1 each PO Q6HR PRN #30 tablet 05/03/17 Unknown Rx 5/325] Vit-Fe Fumar-FA [ 1 tab PO QDAY #30 tablet 05/03/17 Unknown Rx Vitamin] Ofloxacin 0.3% [Ocuflox 0.3% opth] 1 - 2 drops OS DAILY 7 Days #1 09/29/20 Unknown Rx bottle Ibuprofen [Motrin 800 MG tab] 800 mg PO Q8HR PRN #30 tablet 02/02/21 Unknown Rx Prednisone [predniSONE 10 mg 10 mg PO .TAPER #21 tab.ds.pk 02/02/21 Unknown Rx (6-Day Pack, 21 Tabs)] Tizanidine HCl [Zanaflex 6mg CAP] 6 mg PO Q12H PRN #30 capsule 02/02/21 Unknown Rx Allergies Allergy/AdvReac Type Severity Reaction Status Date / Time No Known Allergies Allergy Verified 04/12/17 10:28 ED Review of Systems ROS: Stated complaint: BACK PAIN AND SPAMS Other details as noted in HPI Constitutional: denies: chills, fever Eyes: denies: eye pain, eye discharge, vision change ENT: denies: ear pain, throat pain Respiratory: denies: cough, shortness of breath, wheezing Cardiovascular: denies: chest pain, palpitations Endocrine: no symptoms reported Gastrointestinal: denies: abdominal pain, nausea, diarrhea Genitourinary: denies: urgency, dysuria, discharge Musculoskeletal: back pain (Low back), arthralgia (Low back pain). denies: joint swelling Skin: denies: rash, lesions Neurological: denies: headache, weakness, paresthesias Psychiatric: denies: anxiety, depression Hematological/Lymphatic: denies: easy bleeding, easy bruising ED Past Medical Hx - Past Medical History Previous Medical History?: Yes Hx Hypertension: Yes Hx CVA: No Hx Heart Attack/AMI: No Hx Congestive Heart Failure: No Hx Diabetes: No Hx Deep Vein Thrombosis: No Hx Pulmonary Embolism: No Hx GERD: No Hx Liver Disease: No Hx Renal Disease: No Hx Sickle Cell Disease: No Hx Arthritis: No Hx Headaches / Migraines: No Hx Seizures: No Hx Kidney Stones: No Hx Psychiatric Treatment: No Hx Asthma: No Hx COPD: No Hx Tuberculosis: No Hx Dementia: No Hx HIV: No Additional medical history: fibroids, Right abd/flank pain - Surgical History Past Surgical History?: Yes Hx Coronary Stent: No Hx Open Heart Surgery: No Hx Pacemaker: No Hx Internal Defibrillator: No Hx Cholecystectomy: No Hx Appendectomy: No Hx Breast Surgery: No Additional Surgical History: D&C, Uterine fibroids removed - Social History Smoking Status: Never Smoker Substance Use Type: None - Medications Home Medications: Home Medications Medication Instructions Recorded Confirmed Last Taken Type Vit-Fe Fumar-FA [ 1 tab PO QDAY #30 tablet 10/15/16 05/04/17 Unknown Rx Vitamin] Ferrous Sulfate [Feosol 325 MG tab] 325 mg PO BID #60 tablet 05/03/17 Unknown Rx HYDROcodone/APAP 5-325 [[place] 1 each PO Q6HR PRN #30 tablet 05/03/17 Unknown Rx 5/325] Vit-Fe Fumar-FA [ 1 tab PO QDAY #30 tablet 05/03/17 Unknown Rx Vitamin] Ofloxacin 0.3% [Ocuflox 0.3% opth] 1 - 2 drops OS DAILY 7 Days #1 09/29/20 Unknown Rx bottle Ibuprofen [Motrin 800 MG tab] 800 mg PO Q8HR PRN #30 tablet 02/02/21 Unknown Rx Prednisone [predniSONE 10 mg 10 mg PO .TAPER #21 tab.ds.pk 02/02/21 Unknown Rx (6-Day Pack, 21 Tabs)] Tizanidine HCl [Zanaflex 6mg CAP] 6 mg PO Q12H PRN #30 capsule 02/02/21 Unknown Rx ED Physical Exam - General Limitations: No Limitations General appearance: alert, in no apparent distress - Head Head exam: Present: atraumatic, normocephalic, normal inspection - Eye Eye exam: Present: normal appearance, PERRL, EOMI Pupils: Present: normal accommodation - ENT ENT exam: Present: normal exam, normal orophraynx, mucous membranes moist, TM's normal bilaterally, normal external ear exam - Neck Neck exam: Present: normal inspection, full ROM. Absent: tenderness - Respiratory Respiratory exam: Present: normal lung sounds bilaterally. Absent: respiratory distress, wheezes, rales, rhonchi, chest wall tenderness, accessory muscle use, decreased breath sounds, prolonged expiratory - Cardiovascular Cardiovascular Exam: Present: regular rate, normal rhythm, normal heart sounds. Absent: systolic murmur, diastolic murmur, rubs, gallop - GI/Abdominal GI/Abdominal exam: Present: soft, normal bowel sounds. Absent: tenderness, guarding, rebound, hyperactive bowel sounds, hypoactive bowel sounds, organomegaly, mass - Extremities Exam Extremities exam: Present: normal inspection, full ROM, normal capillary refill. Absent: tenderness, pedal edema, joint swelling, calf tenderness - Back Exam Back exam: Present: normal inspection, full ROM, tenderness (Palpable lumbosacral paraspinal musculoskeletal tenderness), muscle spasm, paraspinal tenderness - Neurological Exam Neurological exam: Present: alert, oriented X3, CN II-XII intact, normal gait, reflexes normal - Psychiatric Psychiatric exam: Present: normal affect, normal mood - Skin Skin exam: Present: warm, dry, intact, normal color. Absent: rash ED Course Vital Signs 02/01/21 23:21 Temperature 98.3 F Pulse Rate 79 Respiratory 16 Rate Blood Pressure 158/85 O2 Sat by Pulse 97 Oximetry ED Medical Decision Making - Medical Decision Making This is a 40-year-old -[place] female with a history of hypertension and morbid obesity who presents to the ED with complaint of acute onset persistent low back pain after heavy lifting at work 2 days ago. The patient states that the pain has worsened in the last 12 hours with any movement, stating that she was unable to get out of bed because of worsening pain in her low back. Patient states that she did not take any medications prior to arrival in the ED. in the ED, patient is alert and oriented x3 and is not in any distress. Patient was treated for pain in the ED and on reevaluation, patient's pain is well controlled medications. Patient was discharged home on pain medications and muscle relaxants based on the history of lifting causing significant muscle spasm. Patient was advised to follow-up with her primary care physician in 7 to 10 days for reevaluation or return to the ED immediately if symptoms get worse. - Differential Diagnosis Muscle spasm; muscle strain; back injury Critical care attestation.: If time is entered above; I have spent that time in minutes in the direct care of this critically ill patient, excluding procedure time. ED Disposition Clinical Impression: Acute bilateral low back pain without sciatica, Spasm of muscle of lower back, Strain of muscle, fascia and tendon of lower back, initial encounter Disposition: HOME / SELF CARE / HOMELESS Is pt being admited?: No Does the pt Need Aspirin: No Condition: Stable Instructions: Muscle Cramps and Spasms, [id number], Muscle Strain, [id number], Low Back Sprain or Strain Rehab-SportsMed, Back Injury Prevention, [id number] Additional Instructions: Your symptoms due to muscle spasm following heavy lifting. Therefore take pain medications and muscle relaxants as advised, drink plenty of fluids and follow- up with your primary care physician in 7 to 10 days for reevaluation. Return to the ED immediately if symptoms get worse. Prescriptions: Ibuprofen [Motrin 800 MG tab] 800 mg PO Q8HR PRN #30 tablet PRN Reason: Pain , Severe (7-10) Prednisone [predniSONE 10 mg (6-Day Pack, 21 Tabs)] 10 mg PO .TAPER #21 tab.ds.pk Tizanidine HCl [Zanaflex 6mg CAP] 6 mg PO Q12H PRN #30 capsule PRN Reason: Muscle Spasm Referrals: [facility] [Provider Group] - 7-10 days Forms: Work/School Release Form(ED) Time of Disposition: 00:02 Print Language: ALBANIAN
[2021-02-02 00:38] VITALS: BP 151/97
== END 2021-02-02 00:37 | disposition home or self-care (01) ==
LOC: ED 22:15
DX: S29.012A Strain of muscle and tendon of back wall of thorax, initial encounter (principal); X50.0XXA Overexertion from strenuous movement or load, initial encounter; Y93.89 Activity, other specified; Y92.89 Other specified places as the place of occurrence of the external cause; Y99.8 Other external cause status
CPT/HCPCS: 96372; 99282; J1885; J7512

== ENCOUNTER 2021-02-09 20:47 | Emergency (ER) | payer OTHER ==
[2021-02-09] MEDS ORDERED: KETOROLAC 30 MG/1 ML INJ IM ONE (21:08)
--- NOTE | 2021-02-09 21:15 | Emergency Department Report ---
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 Patient states she injured her back lifting heavy [employer] tree boxes at work 2 days ago. States she has been in bed with back spasms 7/10 pain. Is been no numbness no tingling no paralysis no loss or decrease in bowel or bladder function. Pain radiates to both lower extremities. Pain is exacerbated by ambulation. Pain is relieved by rest and lying down. Patient did report incident to health and safety trainer at work. Pain rated at 5/10 at this time. Patient did drive self to ED and ambulated into ED on her own power. Last menstrual cycle was 2 days ago. MD Complaint: back injury Onset/Timin -: days(s) - Related Data Previous Rx's Medication Instructions Recorded Last Taken Type Vit-Fe Fumar-FA [ 1 tab PO QDAY #30 tablet 10/15/16 Unknown Rx Vitamin] HYDROcodone/APAP 5-325 [[place] 1 each PO Q6HR PRN #30 tablet 05/03/17 Unknown Rx 5/325] Vit-Fe Fumar-FA [ 1 tab PO QDAY #30 tablet 05/03/17 Unknown Rx Vitamin] RX: Ferrous Sulfate [Feosol 325 MG 325 mg PO BID #60 tablet 05/03/17 Unknown Rx tab] RX: Ofloxacin 0.3% [Ocuflox 0.3% 1 - 2 drops OS DAILY 7 Days #1 09/29/20 Unknown Rx opth] bottle Prednisone [predniSONE 10 mg 10 mg PO .TAPER #21 tab.ds.pk 02/02/21 Unknown Rx (6-Day Pack, 21 Tabs)] RX: Ibuprofen [Motrin 800 MG tab] 800 mg PO Q8HR PRN #30 tablet 02/02/21 Unknown Rx Tizanidine HCl [Zanaflex 6mg CAP] 6 mg PO Q12H PRN #30 capsule 02/02/21 Unknown Rx Cyclobenzaprine [Flexeril] 10 mg PO TID PRN #30 tablet 02/10/21 Unknown Rx Menthol/Camphor [[place] 1 applicatio TP QID PRN #1 tube 02/10/21 Unknown Rx Ointment] RX: Naproxen 500 mg PO BID PRN #30 tablet 02/10/21 Unknown Rx Allergies Allergy/AdvReac Type Severity Reaction Status Date / Time No Known Allergies Allergy Verified 04/12/17 10:28 ED Review of Systems ROS: Stated complaint: I think I pulled something in my back Other details as noted in HPI Constitutional: denies: chills, fever Eyes: denies: eye pain, eye discharge, vision change ENT: denies: ear pain, throat pain Respiratory: denies: cough, shortness of breath, wheezing Cardiovascular: denies: chest pain, palpitations Endocrine: no symptoms reported Gastrointestinal: denies: abdominal pain, nausea, diarrhea Genitourinary: denies: urgency, dysuria, discharge Musculoskeletal: back pain, myalgia Skin: denies: rash, lesions Neurological: denies: headache, weakness, numbness, paresthesias, confusion, vertigo Psychiatric: denies: anxiety, depression Hematological/Lymphatic: denies: easy bleeding, easy bruising ED Past Medical Hx - Past Medical History Hx Hypertension: Yes Hx CVA: No Hx Heart Attack/AMI: No Hx Congestive Heart Failure: No Hx Diabetes: No Hx Deep Vein Thrombosis: No Hx Pulmonary Embolism: No Hx GERD: No Hx Liver Disease: No Hx Renal Disease: No Hx Sickle Cell Disease: No Hx Arthritis: No Hx Headaches / Migraines: No Hx Seizures: No Hx Kidney Stones: No Hx Psychiatric Treatment: No Hx Asthma: No Hx COPD: No Hx Tuberculosis: No Hx Dementia: No Hx HIV: No Additional medical history: fibroids, Right abd/flank pain - Surgical History Hx Coronary Stent: No Hx Open Heart Surgery: No Hx Pacemaker: No Hx Internal Defibrillator: No Hx Cholecystectomy: No Hx Appendectomy: No Hx Breast Surgery: No Additional Surgical History: D&C, Uterine fibroids removed - Social History Smoking Status: Never Smoker Substance Use Type: None - Medications Home Medications: Home Medications Medication Instructions Recorded Confirmed Last Taken Type Vit-Fe Fumar-FA [ 1 tab PO QDAY #30 tablet 10/15/16 05/04/17 U nknown Rx Vitamin] HYDROcodone/APAP 5-325 [[place] 1 each PO Q6HR PRN #30 tablet 05/03/17 Unknown Rx 5/325] Vit-Fe Fumar-FA [ 1 tab PO QDAY #30 tablet 05/03/17 Unknown Rx Vitamin] RX: Ferrous Sulfate [Feosol 325 MG 325 mg PO BID #60 tablet 05/03/17 Unknown Rx tab] RX: Ofloxacin 0.3% [Ocuflox 0.3% 1 - 2 drops OS DAILY 7 Days #1 09/29/20 Unknown Rx opth] bottle Prednisone [predniSONE 10 mg 10 mg PO .TAPER #21 tab.ds.pk 02/02/21 Unknown Rx (6-Day Pack, 21 Tabs)] RX: Ibuprofen [Motrin 800 MG tab] 800 mg PO Q8HR PRN #30 tablet 02/02/21 Unknown Rx Tizanidine HCl [Zanaflex 6mg CAP] 6 mg PO Q12H PRN #30 capsule 02/02/21 Unknown Rx Cyclobenzaprine [Flexeril] 10 mg PO TID PRN #30 tablet 02/10/21 Unknown Rx Menthol/Camphor [[place] 1 applicatio TP QID PRN #1 tube 02/10/21 Unknown Rx Ointment] RX: Naproxen 500 mg PO BID PRN #30 tablet 02/10/21 Unknown Rx ED Physical Exam - General Limitations: No Limitations General appearance: alert, in no apparent distress - Head Head exam: Present: normocephalic, normal inspection - Eye Eye exam: Present: normal appearance, EOMI Pupils: Present: normal accommodation - ENT ENT exam: Present: mucous membranes moist - Neck Neck exam: Present: normal inspection, full ROM. Absent: tenderness, men ingismus - Respiratory Respiratory exam: Present: normal lung sounds bilaterally. Absent: respiratory distress, wheezes, chest wall tenderness - Cardiovascular Cardiovascular Exam: Present: regular rate, normal rhythm, normal heart sounds. Absent: systolic murmur, diastolic murmur, rubs, gallop - GI/Abdominal GI/Abdominal exam: Present: soft, normal bowel sounds. Absent: distended, tenderness - Rectal Rectal exam: Present: deferred - Extremities Exam Extremities exam: Present: full ROM. Absent: tenderness - Back Exam Back exam: Present: full ROM, muscle spasm, paraspinal tenderness. Absent: vertebral tenderness - Expanded Back Exam Expanded Back exam: Absent: saddle anesthesia Back exam: Positive Straight Leg Raise: Left, Right (bilat) - Neurological Exam Neurological exam: Present: alert, oriented X3, CN II-XII intact, abnormal gait (restricted by pain), reflexes normal. Absent: motor sensory deficit - Expanded Neurological Exam Expanded Patient oriented to: Present: person, place, time Speech: Present: fluid speech Motor strength exam: RUE: 5, LUE: 5, RLE: 5, LLE: 5 DTR: tricep (L): 1+, knee (R): 1+ Best Eye Response ([place]): (4) open spontaneously Best Motor Response ([place]): (6) obeys commands Best Verbal Response ([place]): (5) oriented [place] Total: 15 - Psychiatric Psychiatric exam: Present: normal affect, normal mood - Skin Skin exam: Present: warm, dry, intact, normal color. Absent: rash ED Course Vital Signs 02/09/21 02/09/21 20:57 21:24 Temperature 97.8 F Pulse Rate 86 Respiratory 20 16 Rate Blood Pressure 169/98 [Right] O2 Sat by Pulse 98 Oximetry ED Medical Decision Making - Lab Data Labs 02/09/21 22:48 Urine Color Yellow Urine Turbidity Clear Urine pH 5.0 Ur Specific [place] 1.020 Urine Protein <15 mg/dl Urine Glucose (UA) Neg Urine Ketones Neg Urine Blood Mod Urine Nitrite Neg Urine Bilirubin Neg Urine Urobilinogen < 2.0 Ur Leukocyte Esterase Neg Urine WBC (Auto) 2.0 Urine RBC (Auto) 1.0 U Epithel Cells (Auto) 5.0 Urine Mucus Few Urine HCG, Qual Negative - Radiology Data Radiology results: report reviewed, image reviewed LUMBOSACRAL SPINE 3 VIEWS INDICATION / CLINICAL INFORMATION: Lower back pain for 2 weeks due to heavy lifting. COMPARISON: None available. FINDINGS: BONES / JOINT(S): There is minimal anterior spurring at L3-4 and L4-5 without significant disc space narrowing. There is also minimal anterior spurring at several levels in the lower thoracic spine. The pedicles are intact and the SI joints are normal. There is no evidence of acute fracture, subluxation or destructive lesion. SOFT TISSUES: No significant abnormality. ADDITIONAL FINDINGS: None. IMPRESSION: Minimal spondylosis without acute abnormality. Signer Name: Vargas Guerin MD Signed: 02/10/2021 12:31 AM Workstation Name: [id number] Transcribed By: RT Dictated By: Vargas Guerin MD Electronically Authenticated By: Vargas Guerin MD Signed Date/Time: 02/10/2130 DD/ TD/TT: - Medical Decision Making X-ray no fracture no soft tissue abnormality, mild chronic spondylolosis, pain is improved with medication given in ED. UA normal, plan DC to home with prescriptions, back exercises, follow-up with primary care doctor in 2 to 3 days. Patient verbalized agreement and understanding with discharge plan patient DC'd home in stable condition at this time., Critical care attestation.: If time is entered above; I have spent that time in minutes in the direct care of this critically ill patient, excluding procedure time. ED Disposition Clinical Impression: Lumbar strain Qualifiers: Encounter type: initial encounter Qualified Code(s): S39.012A - Strain of muscle, fascia and tendon of lower back, initial encounter Disposition: HOME / SELF CARE / HOMELESS Is pt being admited?: No Does the pt Need Aspirin: No Condition: Stable Instructions: Low Back Sprain or Strain Rehab-SportsMed, Back Injury Prevention Additional Instructions: Take medications as prescribed, back exercises as directed, follow-up with your doctor in 2 to 3 days. Return to emergency department should symptoms worsen. Prescriptions: Cyclobenzaprine [Flexeril] 10 mg PO TID PRN #30 tablet PRN Reason: Muscle Spasm RX: Naproxen 500 mg PO BID PRN #30 tablet PRN Reason: pain Menthol/Camphor [[place] Ointment] 1 applicatio TP QID PRN #1 tube PRN Reason: pain Referrals: HELENA SMITH MD [Staff Physician] - 3-5 Days Forms: Work/School Release Form(ED) Time of Disposition: 01:04
[2021-02-09 23:38] LABS: Bilirubin,Urine NEG (Negative); Blood,Urine MOD (Negative); Color,Urine Yellow (Yellow); Mucus,Urine FEW /HPF; Protein,Urine <15 mg/dL mg/dL (Negative); Urobilinogen,Urine < 2.0 mg/dL (<2.0)
[2021-02-09 23:45] LABS: HCG Qualitative,Urine Negative (Negative)
--- NOTE | 2021-02-10 00:36 | XRay Report ---
LUMBOSACRAL SPINE 3 VIEWS INDICATION / CLINICAL INFORMATION: Lower back pain for 2 weeks due to heavy lifting. COMPARISON: None available. FINDINGS: BONES / JOINT(S): There is minimal anterior spurring at L3-4 and L4-5 without significant disc space narrowing. There is also minimal anterior spurring at several levels in the lower thoracic spine. The pedicles are intact and the SI joints are normal. There is no evidence of acute fracture, subluxatio n or destructive lesion. SOFT TISSUES: No significant abnormality. ADDITIONAL FINDINGS: None. IMPRESSION: Minimal spondylosis without acute abnormality. Signer Name: Vargas Guerin MD Signed: 02/10/2021 12:31 AM Workstation Name: [id number]
[2021-02-10 01:32] VITALS: BP 153/93
== END 2021-02-10 01:33 | disposition home or self-care (01) ==
LOC: ED 20:47
DX: S39.012A Strain of muscle, fascia and tendon of lower back, initial encounter (principal); I10 Essential (primary) hypertension; X58.XXXA Exposure to other specified factors, initial encounter; Y93.89 Activity, other specified; Y92.89 Other specified places as the place of occurrence of the external cause; Y99.8 Other external cause status
CPT/HCPCS: 72100; 81001; 81025; 96372; 99283; J1885